=== PATIENT | female | born 2000 | race Caucasian/White ===

== ENCOUNTER 2020-09-20 05:01 | Emergency (ER) | payer OTHER ==
[2020-09-20] MEDS ORDERED: SODIUM CHLORIDE 0.9% 1,000 ML IV ONE (06:44)
[2020-09-20] MEDS ORDERED: LORazepam 2 MG/ML INJ IV STA (06:44)
[2020-09-20] MEDS ORDERED: KETOROLAC 15 MG/ML 1 ML VIAL IVP STA (06:44)
[2020-09-20] MEDS ORDERED: SODIUM CHLORIDE 0.9% 1,000 ML IV SCH (06:45)
--- NOTE | 2020-09-20 07:06 | ED ---
Anxiety HPI - General Chief Complaint: Anxiety Stated Complaint: anxiety Time Seen by Provider: 09/20/20 06:15 Source: patient Mode of arrival: ambulatory - History of Present Illness Initial Comments: 20-year-old female presenting today for chief complaint of anxiety attack. Chely barnett states that she struggles anxiety chronically. She states she has not reached out for any help she denies any suicidal or homicidal ideations. Patient states every so often she gets anxiety attacks and she cannot talk herself down. Denies specific triggers. Patient states she has had a headache x 3 weeks but states she hasnt taken any ibuprofen or tylenol is day and struggles with headaches daily, she states that this headache is not the wrost of her life, did not come on suddenly, she denies neck stiffness, fevers, head trauma/falls, weakness/sensation deficits of the UE or LE, denies dizziness/sensation of feeling off balance or visual changes. Denies chest pain, admits to slight dyspnea when she feels anxious-no present currently. Patient denies cardiac history.. Denies leg swelling, hemoptysis, cancer, recent surgeries/injuries or immobilization, denies hx of clotting disorder/DVT/PE. Annabelle pain with deep inspiration. Patient has no additional complaints. Upon arrival patient hR elevated. - Related Data Home Medications: Home Medications Medication Instructions Recorded Confirmed No Known Home Medications 09/20/20 09/20/20 Allergies/Adverse Reactions: Allergies Allergy/AdvReac Type Severity Reaction Status Date / Time cashew nut Allergy Rash/Hives Verified 09/20/20 09:49 cranberry Allergy Anaphylaxis Verified 09/20/20 09:49 Review of Systems ROS Statement: Those systems with pertinent positive or pertinent negative responses have been documented in the HPI. ROS Other: All systems not noted in ROS Statement are negative. Past Medical History Past Medical History: No Reported History History of Any Multi-Drug Resistant Organisms: None Reported Past Surgical History: No Surgical Hx Reported Past Psychological History: No Psychological Hx Reported Smoking Status: Never smoker Past Alcohol Use History: Occasional Past Drug Use History: None Reported General Exam - General Exam Comments Initial Comments: General: The patient is awake and alert, in no distress, and does not appear acutely ill. Eye: Pupils are equal, round and reactive to light, extra-ocular movements are intact. No nystagmus. There is normal conjunctiva bilaterally. No signs of icterus. Ears, nose, mouth and throat: There are moist mucous membranes and no oral lesions. Neck: The neck is supple, there is no tenderness or JVD. Cardiovascular: There is a slightly increased rate and rhythm. No murmur, rub or gallop is appreciated. Respiratory: Lungs are clear to auscultation, respirations are non-labored, breath sounds are equal. No wheezes, stridor, rales, or rhonchi. Gastrointestinal: Soft, non-distended, non-tender abdomen without masses or organomegaly noted. There is no rebound or guarding present. Musculoskeletal: Normal ROM, no tenderness. Strength 5/5. Sensation intact. Radial pulses equal bilaterally 2+. Neurological: A&O x 3. CN II-XII intact grossly, There are no obvious motor or sensory deficits. Coordination appears grossly intact. Speech is normal. Skin: Skin is warm and dry and no rashes or lesions are noted. No calf pain no leg swelling. Psychiatric: Cooperative, appropriate mood & affect, normal judgment. Limitations: no limitations Course Vital Signs 09/20/20 09/20/20 09/20/20 05:16 05:53 09:49 Temperature 98.0 F 97.9 F Pulse Rate 143 H 109 H 115 H Respiratory 20 16 Rate Blood Pressure 119/90 124/93 O2 Sat by Pulse 96 97 Oximetry Medical Decision Making - Medical Decision Making HgB stable. Pt menstruating, denies heavy bleeding/. Patient denies urinary symptoms. UA difficult to exclude infection due to vaginal blood contamination. No murmur on exam. CXR clear. EKG sinus tachycardia. DImer (-). No dyspnea. No chest pain. No current dyspnea. Patient EKG and case discussed [facility] Dr. Mendez in detail who is agreeable to discharge with PCP f/u. Recommended holter monitor, home HR monitoring with pulse oximeter and return for worsening symptoms. Patient agreeable to this care plan and discharge. - Lab Data Result diagrams: 09/20/20 07:30 09/20/20 07:30 Lab Results 09/20/20 09/20/20 09/20/20 Range/Units 07:30 07:30 07:30 WBC 11.9 H (3.8-10.6) k/uL RBC 4.85 (3.80-5.40) m/uL Hgb 14.3 (11.4-16.0) gm/dL Hct 43.4 (34.0-46.0) % MCV 89.3 (80.0-100.0) fL MCH 29.5 (25.0-35.0) pg MCHC 33.0 (31.0-37.0) g/dL RDW 13.0 (11.5-15.5) % Plt Count 428 (150-450) k/uL MPV 6.6 Neutrophils % 64 % Lymphocytes % 26 % Monocytes % 6 % Eosinophils % 1 % Basophils % 1 % Neutrophils # 7.6 (1.3-7.7) k/uL Lymphocytes # 3.1 (1.0-4.8) k/uL Monocytes # 0.7 (0-1.0) k/uL Eosinophils # 0.1 (0-0.7) k/uL Basophils # 0.1 (0-0.2) k/uL D-Dimer 0.30 (<0.60) mg/L FEU Sodium 140 (137-145) mmol/L Potassium 3.7 (3.5-5.1) mmol/L Chloride 106 (98-107) mmol/L Carbon Dioxide 22 (22-30) mmol/L Anion Gap 12 mmol/L BUN 8 (7-17) mg/dL Creatinine 0.59 (0.52-1.04) mg/dL Est GFR (CKD-EPI)AfAm >90 (>60 ml/min/1.73 sqM) Est GFR (CKD-EPI)NonAf >90 (>60 ml/min/1.73 sqM) Glucose 111 H (74-99) mg/dL Calcium 10.2 (8.4-10.2) mg/dL Total Bilirubin 1.8 H (0.2-1.3) mg/dL AST 24 (14-36) U/L ALT 23 (4-34) U/L Alkaline Phosphatase 75 (38-126) U/L Troponin I (0.000-0.034) ng/mL Total Protein 8.7 H (6.3-8.2) g/dL Albumin 4.9 (3.5-5.0) g/dL TSH 1.200 (0.465-4.680) mIU/L Urine Color Urine Appearance (Clear) Urine RBC (0-5) /hpf Urine WBC (0-5) /hpf Urine Bacteria (None) /hpf Urine Mucus (None) /hpf Urine HCG, Qual (Not Detectd) Urine Opiates Screen (NotDetected) Ur Oxycodone Screen (NotDetected) Urine Methadone Screen (NotDetected) Ur Propoxyphene Screen (NotDetected) Ur Barbiturates Screen (NotDetected) U Tricyclic Antidepress (NotDetected) Ur Phencyclidine Scrn (NotDetected) Ur Amphetamines Screen (NotDetected) U Methamphetamines Scrn (NotDetected) U Benzodiazepines Scrn (NotDetected) Urine Cocaine Screen (NotDetected) U Marijuana (THC) Screen (NotDetected) 09/20/20 09/20/20 09/20/20 Range/Units 07:30 08:48 08:48 WBC (3.8-10.6) k/uL RBC (3.80-5.40) m/uL Hgb (11.4-16.0) gm/dL Hct (34.0-46.0) % MCV (80.0-100.0) fL MCH (25.0-35.0) pg MCHC (31.0-37.0) g/dL RDW (11.5-15.5) % Plt Count (150-450) k/uL MPV Neutrophils % % Lymphocytes % % Monocytes % % Eosinophils % % Basophils % % Neutrophils # (1.3-7.7) k/uL Lymphocytes # (1.0-4.8) k/uL Monocytes # (0-1.0) k/uL Eosinophils # (0-0.7) k/uL Basophils # (0-0.2) k/uL D-Dimer (<0.60) mg/L FEU Sodium (137-145) mmol/L Potassium (3.5-5.1) mmol/L Chloride (98-107) mmol/L Carbon Dioxide (22-30) mmol/L Anion Gap mmol/L BUN (7-17) mg/dL Creatinine (0.52-1.04) mg/dL Est GFR (CKD-EPI)AfAm (>60 ml/min/1.73 sqM) Est GFR (CKD-EPI)NonAf (>60 ml/min/1.73 sqM) Glucose (74-99) mg/dL Calcium (8.4-10.2) mg/dL Total Bilirubin (0.2-1.3) mg/dL AST (14-36) U/L ALT (4-34) U/L Alkaline Phosphatase (38-126) U/L Troponin I 0.012 (0.000-0.034) ng/mL Total Protein (6.3-8.2) g/dL Albumin (3.5-5.0) g/dL TSH (0.465-4.680) mIU/L Urine Color Red Urine Appearance Bloody H (Clear) Urine RBC >182 H (0-5) /hpf Urine WBC >182 H (0-5) /hpf Urine Bacteria Many H (None) /hpf Urine Mucus Many H (None) /hpf Urine HCG, Qual Not Detected (Not Detectd) Urine Opiates Screen Not Detected (NotDetected) Ur Oxycodone Screen Not Detected (NotDetected) Urine Methadone Screen Not Detected (NotDetected) Ur Propoxyphene Screen Not Detected (NotDetected) Ur Barbiturates Screen Not Detected (NotDetected) U Tricyclic Antidepress Not Detected (NotDetected) Ur Phencyclidine Scrn Not Detected (NotDetected) Ur Amphetamines Screen Not Detected (NotDetected) U Methamphetamines Scrn Not Detected (NotDetected) U Benzodiazepines Scrn Not Detected (NotDetected) Urine Cocaine Screen Not Detected (NotDetected) U Marijuana (THC) Screen Not Detected (NotDetected) Disposition Clinical Impression: Anxiety, Tachycardia Disposition: HOME SELF-CARE Condition: Good Instructions (If sedation given, give patient instructions): Generalized Anxiety Disorder (ED), Tachycardia (ED) Additional Instructions: Please use medication as discussed. Please follow-up with family doctor in the next 24 hours, recommend holter monitor/echo outpatient. Please return to emergency room if the symptoms increase or worsen or for any other concerns. Is patient prescribed a controlled substance at d/c from ED?: No Referrals: None,Stated [Primary Care Provider] - 1-2 days Fish Rodriguez MD [STAFF PHYSICIAN] [facility]-2 days Time of Disposition: 10:01
--- NOTE | 2020-09-20 07:19 | XR ---
EXAMINATION TYPE: XR chest 2V DATE OF EXAM: 09/20/2020 COMPARISON: NONE HISTORY: Tachycardia and anxiety. TECHNIQUE: Frontal and lateral views of the chest are obtained. FINDINGS: There is no focal air space opacity, pleural effusion, or pneumothorax seen. The cardiac silhouette size is within normal limits. The osseous structures are intact. IMPRESSION: No acute cardiopulmonary process.
[2020-09-20 07:41] LABS: Basophils # (A) 0.1 k/uL (0-0.2); Basophils % (A) 1 %; Eosinophils # (A) 0.1 k/uL (0-0.7); Eosinophils % (A) 1 %; HCT 43.4 % (34.0-46.0); HGB 14.3 gm/dL (11.4-16.0); Lymphocytes # (A) 3.1 k/uL (1.0-4.8); Lymphocytes % (A) 26 %; MCH 29.5 pg (25.0-35.0); MCV 89.3 fL (80.0-100.0); Mean Platelet Volume 6.6; Monocytes # (A) 0.7 k/uL (0-1.0); Monocytes % (A) 6 %; Neutrophils # (A) 7.6 k/uL (1.3-7.7); Neutrophils % (A) 64 %; Platelet Count 428 k/uL (150-450); RBC 4.85 m/uL (3.80-5.40); WBC 11.9 k/uL (3.8-10.6)
[2020-09-20 07:48] LABS: ALT 23 U/L (4-34); AST 24 U/L (14-36); African American GFR (CKD) >90 (>60 ml/min/1.73 sqM); Albumin 4.9 g/dL (3.5-5.0); Alkaline Phosphatase 75 U/L (38-126); Anion Gap 12 mmol/L; Blood Urea Nitrogen 8 mg/dL (7-17); Calcium 10.2 mg/dL (8.4-10.2); Carbon Dioxide 22 mmol/L (22-30); Chloride 106 mmol/L (98-107); Glucose 111 mg/dL (74-99); Non-African American GFR(CKD) >90 (>60 ml/min/1.73 sqM); Potassium 3.7 mmol/L (3.5-5.1); Sodium 140 mmol/L (137-145); Total Bilirubin 1.8 mg/dL (0.2-1.3); Total Protein 8.7 g/dL (6.3-8.2)
[2020-09-20 09:20] LABS: Bacteria,Urine Many /hpf; Mucus,Urine Many /hpf; RBC,Urine >182 /hpf (0-5); WBC,Urine >182 /hpf (0-5)
[2020-09-20 09:23] LABS: Appearance,Urine Bloody (Clear)
[2020-09-20 09:24] LABS: Color,Urine Red
[2020-09-20 09:50] VITALS: BP 124/93; PULSE 115; RESP 16; TEMP 97.9
[2020-09-20 09:51] LABS: Amphetamine Screen,Urine Not Detected (NotDetected); Barbiturate Screen,Urine Not Detected (NotDetected); Benzodiazepines Screen,Urine Not Detected (NotDetected); Cocaine Screen,Urine Not Detected (NotDetected); Methadone Screen, Urine Not Detected (NotDetected); Opiate Screen,Urine Not Detected (NotDetected); Oxycodone Screen, Urine Not Detected (NotDetected); Phencyclidine Screen,Urine Not Detected (NotDetected); Tricyclic Antidepressant,Urine Not Detected (NotDetected); Urn Cannabinoid Scrn Not Detected (NotDetected)
== END 2020-09-20 10:37 | disposition home or self-care (01) ==
LOC: EC 05:01
DX: F41.9 Anxiety disorder, unspecified (principal); R00.0 Tachycardia, unspecified; Z91.018 Allergy to other foods
CPT/HCPCS: 36415; 93005; 85379; 80053; 84443; 84484; 85025; 81001; 81025; 80306; 87086; 71046; 96374; 96375; 96361 ×3; 99284; J2060

== ENCOUNTER 2020-09-20 19:51 | Emergency (ER) | payer OTHER ==
[2020-09-20] MEDS ORDERED: SODIUM CHLORIDE 0.9% 1,000 ML IV STA (20:47)
[2020-09-20] MEDS ORDERED: HYDROmorphone 1 MG/ML 1 ML SYRINGE IVP STA (20:47)
[2020-09-20] MEDS ORDERED: ONDANSETRON 4 MG/2 ML VIAL IVP STA ×2 (20:47→22:30)
[2020-09-20] MEDS ORDERED: diphenhydrAMINE 50 MG/ML 1 ML VIAL IVP STA (20:52)
--- NOTE | 2020-09-20 20:53 | ED ---
General Adult HPI - General Chief complaint: Chest Pain Stated complaint: Chest pain, head pain Time Seen by Provider: 09/20/20 20:22 Source: patient, RN notes reviewed Mode of arrival: ambulatory Limitations: no limitations - History of Present Illness Initial comments: Patient is a 20-year-old female presents to emergency department for headache. She noted that she was here earlier with some chest pain and tachycardia where she was diagnosed with tachycardia and anxiety. She was not able to make a phone call to set up a primary care appointment before returning to a headache that she's been having for several weeks. She noted the pain is behind her eye makes her nauseous and light makes it worse. She stated that she was in about 7 out of 10 pain with no relief from medication. She denied any vomiting but was nauseous yesterday. She was in no apparent distress or pain while sitting in bed during the exam and interview. She denied any chest pain shortness of breath vomiting diarrhea constipation fever fatigue chills lightheadedness dizziness change in vision. - Related Data Home Medications Medication Instructions Recorded Confirmed Acetaminophen [Children's 480 mg PO Q8H PRN 09/20/20 09/20/20 Acetaminophen] Previous Rx's Medication Instructions Recorded ondansetron HCL [Zofran Oral Soln] 4 mg PO Q8H 5 Days #60 solution 09/20/20 Allergies Allergy/AdvReac Type Severity Reaction Status Date / Time cashew nut Allergy Rash/Hives Verified 09/20/20 20:59 cranberry Allergy Anaphylaxis Verified 09/20/20 20:59 Review of Systems ROS Statement: Those systems with pertinent positive or pertinent negative responses have been documented in the HPI. ROS Other: All systems not noted in ROS Statement are negative. Past Medical History Past Medical History: No Reported History Additional Past Medical History / Comment(s): tachycardia History of Any Multi-Drug Resistant Organisms: None Reported Past Surgical History: No Surgical Hx Reported Past Psychological History: No Psychological Hx Reported Smoking Status: Never smoker Past Alcohol Use History: Occasional Past Drug Use History: None Reported General Exam Limitations: no limitations General appearance: alert, in no apparent distress Head exam: Present: atraumatic, normocephalic, normal inspection Eye exam: Present: normal appearance, PERRL, EOMI. Absent: scleral icterus, conjunctival injection, periorbital swelling Neck exam: Present: normal inspection. Absent: tenderness, meningismus, lymphadenopathy Respiratory exam: Present: normal lung sounds bilaterally. Absent: respiratory distress, wheezes, rales, rhonchi, stridor Cardiovascular Exam: Present: normal rhythm, tachycardia, normal heart sounds. Absent: systolic murmur, diastolic murmur, rubs, gallop, clicks GI/Abdominal exam: Present: soft, normal bowel sounds. Absent: distended, tenderness, guarding, rebound, rigid Extremities exam: Present: normal inspection, full ROM, normal capillary refill. Absent: tenderness, pedal edema, joint swelling, calf tenderness Neurological exam: Present: alert, oriented X3, CN II-XII intact Psychiatric exam: Present: normal affect, normal mood Skin exam: Present: warm, dry, intact, normal color. Absent: rash Course Vital Signs 09/20/20 09/20/20 19:57 21:10 Temperature 98 F Pulse Rate 115 H 117 H Respiratory 19 20 Rate Blood Pressure 114/79 116/89 O2 Sat by Pulse 98 99 Oximetry - Reevaluation(s) Reevaluation #1: 09/20/20 22:01 This noted the patient became pale, which is unusual reaction to Dilaudid for some people. One more liter of saline was ordered. EKG Findings - EKG Comments: EKG Findings:: Ventricular rate 119 bpm, AL interval 160 ms, QRS duration 84 ms, QT/QTC 326/158 ms, PheartT axis 78/77/25. Sinus tachycardia, ST and T wave abnormality consider inferior ischemia. Abnormal ECG. Medical Decision Making - Medical Decision Making 20-year-old female complaining of headache for several weeks. 1 L normal saline, 1 mg of Dilaudid, 4 mg Zofran ordered. EKG ordered and interpreted. 1 more liter of saline ordered. Case discussed with Dr. Joe, decided was located discharge patient home. - EKG Data -: EKG Interpreted by Me Rate: tachycardia EKG Comments: Ventricular rate 119 bpm, AL interval 160 ms, QRS duration 84 ms, QT/QTC 326/158 ms, PheartT axis 78/77/25. Sinus tachycardia, ST and T wave abnormality consider inferior ischemia. Abnormal ECG. Disposition Clinical Impression: Migraine, Tachycardia, Anxiety Disposition: HOME SELF-CARE Condition: Stable Instructions (If sedation given, give patient instructions): Migraine Headache (ED) Additional Instructions: Please return to the Emergency Department if symptoms worsen or any other concerns. Increase oral fluid intake. Follow-up primary care 1-2 days. Take medications as prescribed. Prescriptions: ondansetron HCL [Zofran Oral Soln] 4 mg PO Q8H 5 Days #60 solution Is patient prescribed a controlled substance at d/c from ED?: No Referrals: None,Stated [Primary Care Provider] - 1-2 days Time of Disposition: 22:32
[2020-09-20] MEDS ORDERED: SODIUM CHLORIDE 0.9% 1,000 ML IV ONE (21:47)
[2020-09-20 23:01] VITALS: BP 108/82; PULSE 102; RESP 18; TEMP 98.1
== END 2020-09-20 22:52 | disposition home or self-care (01) ==
LOC: EC 19:51
DX: F41.9 Anxiety disorder, unspecified (principal); G43.909 Migraine, unspecified, not intractable, without status migrainosus; R00.0 Tachycardia, unspecified; Z91.018 Allergy to other foods
CPT/HCPCS: 93005; 99284; 96374; 96375 ×2; 96376; 96361 ×2; J1200; J2405; J1170

== ENCOUNTER 2020-09-22 21:52 | Emergency (ER) | payer OTHER ==
[2020-09-22 21:56] VITALS: RESP 18; TEMP 98
[2020-09-22] MEDS ORDERED: SODIUM CHLORIDE 0.9% 1,000 ML IV STA (22:29)
[2020-09-22] MEDS ORDERED: SODIUM CHLORIDE 0.9% 500 ML 500 ML IV STA (22:29)
[2020-09-22] MEDS ORDERED: LORazepam 2 MG/ML INJ IV STA (22:30)
[2020-09-22 22:56] LABS: Basophils # (A) 0.1 k/uL (0-0.2); Basophils % (A) 1 %; Eosinophils # (A) 0.1 k/uL (0-0.7); Eosinophils % (A) 1 %; HCT 40.9 % (34.0-46.0); HGB 13.4 gm/dL (11.4-16.0); Lymphocytes # (A) 1.7 k/uL (1.0-4.8); Lymphocytes % (A) 31 %; MCHC 32.8 g/dL (31.0-37.0); MCV 88.2 fL (80.0-100.0); Mean Platelet Volume 6.8; Monocytes # (A) 0.3 k/uL (0-1.0); Monocytes % (A) 6 %; Neutrophils # (A) 3.3 k/uL (1.3-7.7); Neutrophils % (A) 59 %; Platelet Count 405 k/uL (150-450); RBC 4.63 m/uL (3.80-5.40); RDW 13.4 % (11.5-15.5); WBC 5.7 k/uL (3.8-10.6)
[2020-09-22 23:05] LABS: ALT 18 U/L (4-34); AST 21 U/L (14-36); African American GFR (CKD) >90 (>60 ml/min/1.73 sqM); Albumin 4.3 g/dL (3.5-5.0); Alkaline Phosphatase 64 U/L (38-126); Anion Gap 10 mmol/L; Blood Urea Nitrogen 2 mg/dL (7-17); Calcium 9.6 mg/dL (8.4-10.2); Carbon Dioxide 24 mmol/L (22-30); Chloride 107 mmol/L (98-107); Creatine Kinase 90 U/L (30-135); Glucose 88 mg/dL (74-99); Lipase 93 U/L (23-300); Non-African American GFR(CKD) >90 (>60 ml/min/1.73 sqM); Potassium 3.5 mmol/L (3.5-5.1); Sodium 141 mmol/L (137-145); Total Bilirubin 1.4 mg/dL (0.2-1.3); Total Protein 7.3 g/dL (6.3-8.2)
[2020-09-22 23:19] LABS: Appearance,Urine Cloudy (Clear); Bacteria,Urine Occasional /hpf; Bilirubin,Urine Negative (Negative); Blood,Urine Large (Negative); Color,Urine Yellow; Glucose,Urine (UA) Negative (Negative); Ketones,Urine 3+ (Negative); Leukocyte Esterase,Urine Small (Negative); Mucus,Urine Many /hpf; Nitrite,Urine Negative (Negative); PH, Urine 6.5 (5.0-8.0); Protein,Urine 1+ (Negative); RBC,Urine 6 /hpf (0-5); Specific Gravity,Urine 1.021 (1.001-1.035); Squamous Epithelial Cell,Urine 18 /hpf (0-4); WBC,Urine 15 /hpf (0-5)
--- NOTE | 2020-09-22 23:22 | ED ---
Chest Pain HPI - General Chief Complaint: Chest Pain Stated Complaint: Chest Pain Time Seen by Provider: 09/22/20 22:27 Source: patient, RN notes reviewed, old records reviewed Mode of arrival: wheelchair Limitations: no limitations - History of Present Illness Initial Comments: This is a 20-year-old female DF for evaluation she presents today for evaluation of persistent chest pain patient presents today for evaluation of persistent symptoms. Patient was here twice 2 days prior. Patient has otherwise no significant sick contacts or travel history. No significant evaluation prior hospital visits no medical history takes no medicationatient does suffer from an elevated heart rate for an unknown reason or cause MD Complaint: chest pain -: days(s) Onset: during rest, during exertion Pain Location: substernal Pain Radiation: none Severity: mild Severity scale (1-10): 2 Quality: heaviness Consistency: constant Improves With: nothing Worsens With: nothing Context: other (None) Anginal Symptoms: other (None) Other Symptoms: palpitations Treatments Prior to Arrival: none - Related Data Home Medications Medication Instructions Recorded Confirmed Acetaminophen [Children's 480 mg PO Q8H PRN 09/20/20 09/20/20 Acetaminophen] Previous Rx's Medication Instructions Recorded ondansetron HCL [Zofran Oral Soln] 4 mg PO Q8H 5 Days #60 solution 09/20/20 Allergies Allergy/AdvReac Type Severity Reaction Status Date / Time cashew nut Allergy Rash/Hives Verified 09/22/20 21:57 cranberry Allergy Anaphylaxis Verified 09/22/20 21:57 Review of Systems ROS Statement: Those systems with pertinent positive or pertinent negative responses have been documented in the HPI. ROS Other: All systems not noted in ROS Statement are negative. EKG Findings - EKG Comments: EKG Findings:: EKG is sinus tachycardia 110, MI 178 QRS 82 QTC 449 Past Medical History Past Medical History: No Reported History Additional Past Medical History / Comment(s): tachycardia History of Any Multi-Drug Resistant Organisms: None Reported Past Surgical History: No Surgical Hx Reported Past Psychological History: No Psychological Hx Reported Smoking Status: Never smoker Past Alcohol Use History: Occasional Past Drug Use History: None Reported General Exam Limitations: no limitations General appearance: anxious Head exam: Present: atraumatic, normocephalic, normal inspection Eye exam: Present: normal appearance, PERRL, EOMI. Absent: scleral icterus, conjunctival injection, periorbital swelling ENT exam: Present: normal exam, mucous membranes moist Neck exam: Present: normal inspection. Absent: tenderness, meningismus, lymphadenopathy Respiratory exam: Present: normal lung sounds bilaterally. Absent: respiratory distress, wheezes, rales, rhonchi, stridor Cardiovascular Exam: Present: normal rhythm, tachycardia, normal heart sounds. Absent: systolic murmur, diastolic murmur, rubs, gallop, clicks GI/Abdominal exam: Present: soft, normal bowel sounds. Absent: distended, tenderness, guarding, rebound, rigid Extremities exam: Present: normal inspection, full ROM, normal capillary refill. Absent: tenderness, pedal edema, joint swelling, calf tenderness Back exam: Present: normal inspection Neurological exam: Present: alert, oriented X3, CN II-XII intact Psychiatric exam: Present: normal affect, normal mood Skin exam: Present: warm, dry, intact, normal color. Absent: rash Course Vital Signs 09/22/20 09/23/20 21:53 00:35 Temperature 98.0 F Pulse Rate 135 H 80 Respiratory 18 18 Rate Blood Pressure 120/87 118/83 O2 Sat by Pulse 98 98 Oximetry - Reevaluation(s) Reevaluation #1: Medical record is reviewed Patient has improved symptoms here in the ER Patient feels better Patient family informed results questions are answered Patient feels good for discharge Chest Pain MDM - MDM 20 female presents today for recurrent reevaluation of chest pain to prior visits 2 days ago for similar pain. Patient is negative imaging and testing here in the ER and she can be discharged home Disposition Clinical Impression: Tachycardia, Chest pain Disposition: HOME SELF-CARE Condition: Good Instructions (If sedation given, give patient instructions): Chest Pain (ED) Is patient prescribed a controlled substance at d/c from ED?: No Referrals: None,Stated [Primary Care Provider] - 1-2 days
[2020-09-22 23:55] LABS: C Reactive Protein <5.0 mg/L (<10.0)
--- NOTE | 2020-09-22 23:58 | CT ---
EXAMINATION TYPE: CT angio chest DATE OF EXAM: 09/22/2020 COMPARISON: None HISTORY: PE CT DLP: 232.5 mGycm Automated exposure control for dose reduction was used. CONTRAST: Performed with IV Contrast, patient injected with 60 mL of Isovue 370. There are 3-D post processed images. The lungs are clear of infiltrate. There is no evidence of a pulmonary mass. There is no pleural effu santosh. There is no pericardial effusion. Upper abdominal soft tissues are intact. There are no hilar masses. There is no mediastinal adenopathy. There is normal contrast opacification of the pulmonary arteries. There are no filling defects. Thoracic aorta appears intact. There is no aneurysm or dissection. The bony thorax is intact. IMPRESSION: Normal CT angiogram of the chest. No evidence of pulmonary embolism.
[2020-09-23 00:38] VITALS: BP 118/83; PULSE 80
[2020-09-23 01:11] LABS: T4, Free (Free Thyroxine) 1.63 ng/dL (0.78-2.19)
== END 2020-09-23 01:14 | disposition home or self-care (01) ==
LOC: EC 21:52
DX: R07.9 Chest pain, unspecified (principal); R00.0 Tachycardia, unspecified; Z91.018 Allergy to other foods
CPT/HCPCS: 36415; 93005; 84439; 83880; 80053; 84443; 82550; 83690; 83735; 84484; 85025; 86140; 81001; 81025; 71275; 99285; J2060; Q9967

== ENCOUNTER 2020-11-11 00:48 | Emergency (ER) | payer OTHER ==
--- NOTE | 2020-11-11 03:13 | ED ---
URI HPI - General Chief Complaint: Nausea/Vomiting/Diarrhea Stated Complaint: vomiting Time Seen by Provider: 11/11/20 01:20 Source: patient Mode of arrival: ambulatory Limitations: no limitations - History of Present Illness Initial Comments: This patient is a 20-year-old woman who presents here with a number of complaints that started with congestion and a mild cough a few days ago and then progressed to having nausea and vomiting today and feeling dehydrated. MD Complaint: cough, nasal congestion, sinus pain -: days(s) Severity: moderate Consistency: constant Improves With: nothing Worsens With: nothing Associated Symptoms: nausea, vomiting Treatments Prior to Arrival: none - Related Data Home Medications Medication Instructions Recorded Confirmed Acetaminophen [Children's 480 mg PO Q8H PRN 09/20/20 09/20/20 Acetaminophen] Previous Rx's Medication Instructions Recorded ondansetron HCL [Zofran Oral Soln] 4 mg PO Q8H 5 Days #60 solution 09/20/20 Amoxicillin 875 mg PO Q12HR #14 tablet 11/11/20 Ondansetron Odt [Zofran ODT] 4 mg PO Q8HR PRN #10 tab 11/11/20 Metoclopramide [Reglan] 10 mg PO Q6H PRN #10 tab 11/14/20 Allergies Allergy/AdvReac Type Severity Reaction Status Date / Time cashew nut Allergy Rash/Hives Verified 11/13/20 22:38 cranberry Allergy Anaphylaxis Verified 11/13/20 22:38 Review of Systems ROS Statement: Those systems with pertinent positive or pertinent negative responses have been documented in the HPI. ROS Other: All systems not noted in ROS Statement are negative. Constitutional: Denies: fever, chills ENT: Reports: congestion. Denies: throat pain Respiratory: Reports: cough. Denies: dyspnea, wheezes, hemoptysis Cardiovascular: Denies: chest pain, palpitations, edema Gastrointestinal: Reports: nausea, vomiting. Denies: abdominal pain, diarrhea, constipation, melena, hematochezia Genitourinary: Denies: dysuria, hematuria Musculoskeletal: Denies: back pain Skin: Denies: rash Neurological: Reports: headache (Sinus). Denies: weakness, numbness, paresthesias Past Medical History Past Medical History: No Reported History Additional Past Medical History / Comment(s): tachycardia History of Any Multi-Drug Resistant Organisms: None Reported Past Surgical History: No Surgical Hx Reported Past Psychological History: Anxiety Smoking Status: Never smoker Past Alcohol Use History: Occasional Past Drug Use History: None Reported General Exam Limitations: no limitations General appearance: alert, in no apparent distress Head exam: Present: atraumatic, normocephalic Eye exam: Present: normal appearance, PERRL, EOMI. Absent: scleral icterus, conjunctival injection ENT exam: Present: normal oropharynx Neck exam: Present: normal inspection, full ROM. Absent: tenderness, meningismus Respiratory exam: Present: normal lung sounds bilaterally. Absent: respiratory distress, wheezes, rales, rhonchi, stridor Cardiovascular Exam: Present: regular rate, normal rhythm, normal heart sounds. Absent: systolic murmur, diastolic murmur, rubs, gallop GI/Abdominal exam: Present: soft. Absent: distended, tenderness, guarding, rebound, rigid Extremities exam: Present: normal inspection, normal capillary refill. Absent: pedal edema, calf tenderness Back exam: Present: normal inspection. Absent: CVA tenderness (R), CVA tenderness (L) Neurological exam: Present: alert, oriented X3, CN II-XII intact Skin exam: Present: warm, dry, intact, normal color. Absent: rash Course Vital Signs 11/11/20 11/11/20 00:54 03:15 Temperature 98.0 F 97.9 F Pulse Rate 94 88 Respiratory 18 16 Rate Blood Pressure 116/79 120/82 O2 Sat by Pulse 97 98 Oximetry Medical Decision Making - Lab Data Lab Results 11/11/20 Range/Units 01:54 Coronavirus (PCR) Not Detected (Not Detectd) Disposition Clinical Impression: Sinusitis Disposition: HOME SELF-CARE Condition: Good Instructions (If sedation given, give patient instructions): Sinusitis (ED), Acute Nausea and Vomiting (ED) Prescriptions: Amoxicillin 875 mg PO Q12HR #14 tablet Ondansetron Odt [Zofran ODT] 4 mg PO Q8HR PRN #10 tab PRN Reason: Nausea Is patient prescribed a controlled substance at d/c from ED?: No Referrals: None,Stated [Primary Care Provider] - 1-2 days
[2020-11-11 03:33] VITALS: BP 120/82; PULSE 88; RESP 16; TEMP 97.9
== END 2020-11-11 03:15 | disposition home or self-care (01) ==
LOC: EC 00:48
DX: J32.9 Chronic sinusitis, unspecified (principal)
CPT/HCPCS: 87635; 99284

== ENCOUNTER 2020-11-13 22:19 | Emergency (ER) | payer OTHER ==
[2020-11-13] MEDS ORDERED: SODIUM CHLORIDE 0.9% 1,000 ML IV ONE (22:56)
[2020-11-13] MEDS ORDERED: METOCLOPRAMIDE 5 MG/ML 2 ML VIAL IVP STA (22:56)
--- NOTE | 2020-11-13 23:36 | ED ---
Nausea/Vomiting/Diarrhea HPI - General Chief complaint: Nausea/Vomiting/Diarrhea Stated complaint: Headache Time Seen by Provider: 11/13/20 22:56 Source: patient Mode of arrival: ambulatory Limitations: no limitations - History of Present Illness Initial comments: This patient is 20-year-old woman who presents with complaint of nausea and vomiting. Patient states that she had been having some nausea and vomiting couple of days ago. She was seen here had fluids and antiemetic and was feeling better. She went home and had been good for the interval until this evening when the nausea recurred. She tried taking Zofran but states that she threw up and was not able tolerate fluids. Patient denies having abdominal pain. No change in bowel movements or urination. Other than this on the review of systems she does have a little bit of nonproductive cough. No chest pain or dyspnea. No fever or chills. MD complaint: nausea, vomiting -: hour(s) Description of Vomiting: food contents Associated Abdominal Pain: No Severity scale (1-10): 0 Consistency: constant Improves with: none Worsens with: none Associated Symptoms: cough, nausea/vomiting - Related Data Home Medications Medication Instructions Recorded Confirmed Acetaminophen [Children's 480 mg PO Q8H PRN 09/20/20 09/20/20 Acetaminophen] Previous Rx's Medication Instructions Recorded ondansetron HCL [Zofran Oral Soln] 4 mg PO Q8H 5 Days #60 solution 09/20/20 Amoxicillin 875 mg PO Q12HR #14 tablet 11/11/20 Ondansetron Odt [Zofran ODT] 4 mg PO Q8HR PRN #10 tab 11/11/20 Metoclopramide [Reglan] 10 mg PO Q6H PRN #10 tab 11/14/20 Allergies Allergy/AdvReac Type Severity Reaction Status Date / Time cashew nut Allergy Rash/Hives Verified 11/13/20 22:38 cranberry Allergy Anaphylaxis Verified 11/13/20 22:38 Review of Systems ROS Statement: Those systems with pertinent positive or pertinent negative responses have been documented in the HPI. ROS Other: All systems not noted in ROS Statement are negative. Constitutional: Denies: fever, chills Eyes: Denies: eye pain ENT: Denies: throat pain, congestion Respiratory: Reports: cough. Denies: dyspnea, wheezes, hemoptysis Cardiovascular: Denies: chest pain, palpitations, edema Gastrointestinal: Reports: nausea, vomiting. Denies: abdominal pain, diarrhea, constipation, hematemesis, melena, hematochezia Genitourinary: Denies: dysuria, hematuria Musculoskeletal: Denies: back pain Skin: Denies: rash Past Medical History Past Medical History: No Reported History Additional Past Medical History / Comment(s): tachycardia History of Any Multi-Drug Resistant Organisms: None Reported Past Surgical History: No Surgical Hx Reported Past Psychological History: Anxiety Smoking Status: Never smoker Past Alcohol Use History: Occasional Past Drug Use History: None Reported General Exam Limitations: no limitations General appearance: alert, in no apparent distress Head exam: Present: atraumatic, normocephalic Eye exam: Present: normal appearance. Absent: scleral icterus, conjunctival injection ENT exam: Present: normal oropharynx Neck exam: Present: normal inspection Respiratory exam: Present: normal lung sounds bilaterally. Absent: respiratory distress, wheezes, rales, rhonchi, stridor Cardiovascular Exam: Present: regular rate, normal rhythm, normal heart sounds. Absent: systolic murmur, diastolic murmur, rubs, gallop GI/Abdominal exam: Present: soft. Absent: distended, tenderness, guarding, rebound, rigid, mass Extremities exam: Present: normal inspection, normal capillary refill. Absent: pedal edema Back exam: Absent: CVA tenderness (R), CVA tenderness (L) Neurological exam: Present: alert Skin exam: Present: warm, dry, intact, normal color. Absent: rash Course Vital Signs 11/13/20 22:34 Temperature 97.8 F Pulse Rate 102 H Respiratory 16 Rate Blood Pressure 96/55 O2 Sat by Pulse 97 Oximetry Disposition Clinical Impression: Nausea & vomiting Disposition: HOME SELF-CARE Condition: Good Instructions (If sedation given, give patient instructions): Acute Nausea and Vomiting (ED) Prescriptions: Metoclopramide [Reglan] 10 mg PO Q6H PRN #10 tab PRN Reason: Vomiting Is patient prescribed a controlled substance at d/c from ED?: No Referrals: None,Stated [Primary Care Provider] - 1-2 days
[2020-11-14 01:26] VITALS: BP 102/69; PULSE 84; RESP 18; TEMP 97.5
== END 2020-11-14 01:20 | disposition home or self-care (01) ==
LOC: EC 22:19
DX: R11.2 Nausea with vomiting, unspecified (principal)
CPT/HCPCS: 99283; 96374; 96361; J2765